=== PATIENT | female | born 1990 | race Caucasian/White ===

== ENCOUNTER 2017-03-26 01:57 | Emergency (ER) | payer BC, MEDICAID, OTHER ==
[2017-03-26] MEDS ORDERED: GI Cocktail Oral Solution 30 ML PO ONE (02:17)
--- NOTE | 2017-03-26 02:21 | EDM.PDOC ---
ED HPI GENERAL MEDICAL PROBLEM - General Chief Complaint: Abdominal Pain Stated Complaint: ABD PAIN Time Seen by Provider: 03/26/17 02:17 Source of Information: Reports: Patient History Limitations: Reports: No Limitations - History of Present Illness INITIAL COMMENTS - FREE TEXT/NARRATIVE: ate pizza for dinner developed epiG pain ~ 8pm not going away. tried TUMS with ' o' Epigastric Pain Score (Numeric/FACES): 7 - Related Data Allergies Allergy/AdvReac Type Severity Reaction Status Date / Time No Known Allergies Allergy Verified 03/26/17 02:12 Home Meds: Home Meds . [No Known Home Meds] 10/20/13 [History] Past Medical History - Past Health History Medical/Surgical History: Denies Medical/Surgical History Social & Family History - Tobacco Use Smoking Status *Q: Never Smoker Second Hand Smoke Exposure: Yes - Caffeine Use Caffeine Use: Reports: Coffee, Energy Drinks, Soda, Tea - Alcohol Use Days Per Week of Alcohol Use: 1 (Rarely) - Recreational Drug Use Recreational Drug Use: No - Living Situation & Occupation Living situation: Reports: with Significant Other Occupation: Employed ED ROS GENERAL - Review of Systems Review Of Systems: ROS reveals no pertinent complaints other than HPI. ED EXAM, GI/ABD - Physical Exam Exam: See Below Exam Limited By: No Limitations General Appearance: Alert, WD/WN, Mild Distress, Other (discomfort) Ears: Hearing Grossly Normal Throat/Mouth: Normal Voice, No Airway Compromise Head: Atraumatic Neck: Non-Tender, Full Range of Motion Respiratory/Chest: No Respiratory Distress Cardiovascular: Regular Rate, Rhythm GI/Abdominal Exam: Soft, Tender, Other (mild discomfort). No: Guarding, Rigid, Rebound Neurological: Alert, Oriented, Normal Cognition, Normal Gait, No Motor/Sensory Deficits Psychiatric: Normal Affect, Normal Mood Skin Exam: Warm, Dry, Normal Color Lymphatic: No Adenopathy Course - Vital Signs Last Recorded V/S: Last Vital Signs Temp 35.7 C 03/26/17 02:01 Pulse 65 03/26/17 02:01 Resp 16 03/26/17 02:01 BP 112/67 03/26/17 02:01 Pulse Ox 100 03/26/17 02:01 - Orders/Labs/Meds Labs: Laboratory Tests 03/26/17 03/26/17 Range/Units 02:06 02:06 WBC 9.4 (5.0-10.0) 10^3/uL RBC 4.04 L (4.2-5.4) 10^6/uL Hgb 12.6 (12.0-16.0) g/dL Hct 37.2 (37.0-47.0) % MCV 92.1 (80-100) fL MCH 31.2 (27.0-34.0) pg MCHC 33.9 (33.0-35.0) g/dL Plt Count 231 (150-450) 10^3/uL Neut % (Auto) 54.6 (42.2-75.2) % Lymph % (Auto) 32.6 (20.5-50.1) % [place] % (Auto) 8.7 H (2-8) % Eos % (Auto) 3.4 H (1.0-3.0) % Baso % (Auto) 0.7 (0.0-1.0) % Sodium 139 (135-145) mmol/L Potassium 3.8 (3.6-5.0) mmol/L Chloride 101 (101-111) mmol/L Carbon Dioxide 27.0 (21.0-31.0) mmol/L Anion Gap 14.8 BUN 12 (7-18) mg/dL Creatinine 0.7 (0.6-1.3) mg/dL Est Cr Clr Drug Dosing 115.01 mL/min Estimated GFR (MDRD) > 60 BUN/Creatinine Ratio 17.14 Glucose 102 (74-105) mg/dL Calcium 9.5 (8.4-10.2) mg/dl Total Bilirubin 0.2 (0.2-1.0) mg/dL AST 17 (10-42) IU/L ALT 14 (10-60) IU/L Alkaline Phosphatase 90 (42-121) IU/L Total Protein 6.8 (6.7-8.2) g/dl Albumin 3.9 (3.2-5.5) g/dl Globulin 2.9 Albumin/Globulin Ratio 1.34 Amylase 56 (28-100) U/L Lipase 34 (22-51) U/L Meds: Medications Discontinued Medications Generic Name Dose Route Start Last Admin Trade Name Freq PRN Reason Stop Dose Admin Al Hydroxide/Mg Hydroxide 30 ml 03/26/17 02:17 03/26/17 02:20 Gi Cocktail PO 03/26/17 02:18 30 ml ONETIME ONE Administration - Re-Assessments/Exams Free Text/Narrative Re-Assessment/Exam: 03/26/17 02:39 s/p GI cocktail = better 03/26/17 03:16 re-exam; feels good wants to go home Departure - Departure Time of Disposition: 03:18 Disposition: Home, Self-Care 01 Condition: Good Clinical Impression: Abdominal pain Qualifiers: Abdominal location: epigastric Qualified Code(s): R10.13 - Epigastric pain GERD (gastroesophageal reflux disease) Qualifiers: Esophagitis presence: with esophagitis Qualified Code(s): K21.0 - Gastro- esophageal reflux disease with esophagitis - Discharge Information Instructions: Food Choices for Gastroesophageal Reflux Disease, Adult Forms: ED Department Discharge Additional Instructions: 1) avoid oily fried spicy foods 2) see clinic for GALL BLADDER ULTRASOUND
[2017-03-26 02:53] LABS: CHLORIDE,CL 101 mmol/L (101-111); SODIUM,NA 139 mmol/L (135-145)
[2017-03-26 03:29] VITALS: BP 105/69
== END 2017-03-26 03:23 | disposition home or self-care (01) ==
LOC: DL.ED 01:57
DX: K21.0 Gastro-esophageal reflux disease with esophagitis (principal)
CPT/HCPCS: 36415; 80053; 82150; 83690; 85025; 99284; A9270

== ENCOUNTER 2020-02-26 06:58 | Inpatient (IN) | payer BC ==
--- NOTE | 2020-02-26 01:06 | PCM.LDHP ---
L&D History of Present Illness - General Date of Service: 02/26/20 Admit Problem/Dx: Admission Diagnosis/Problem Admission Diagnosis/Problem Source of Information: Patient History Limitations: Reports: No Limitations - History of Present Illness Introduction:: 29-year-old at 40w5d was scheduled for IOL today secondary to postdates. Patient awoke around 0630 and noted she had some pinkish-red vaginal bleeding. This seemed to be continuously trickling. Patient called L&D and was advised to come in. Upon arrival, patient did have a saturated panty liner with pinkish fluid. Baby has been active. Patient was feeling contractions every 3-5 minutes, but these seemed to decrease upon arrival to L&D. No new headaches or dizziness. - Related Data Allergies/Adverse Reactions: Allergies Allergy/AdvReac Type Severity Reaction Status Date / Time No Known Allergies Allergy Verified 12/22/19 11:46 Home Medications: Home Meds Ferrous Sulfate [Iron] 1 tab PO DAILY 12/22/19 [History] #103/Iron Fumarate/Fa [ ] 1 tab PO DAILY 12/22/19 [History] Famotidine [Pepcid] 1 tab PO PRN 02/26/20 [History] Past Medical History - Past Health History Medical/Surgical History: Denies Medical/Surgical History Social & Family History - Family History Family Medical History: Noncontributory - Caffeine Use Caffeine Use: Reports: Coffee, Energy Drinks, Soda, Tea - Living Situation & Occupation Living situation: Reports: with Significant Other Occupation: Employed H&P Review of Systems - Review of Systems: Review Of Systems: See Below General: Reports: No Symptoms HEENT: Reports: No Symptoms Pulmonary: Reports: No Symptoms Cardiovascular: Reports: No Symptoms Gastrointestinal: Reports: No Symptoms Musculoskeletal: Reports: No Symptoms Skin: Reports: No Symptoms L&D Exam - Exam Exam: See Below - OB Specific Fundal Height In cm: 38 Contraction Duration (sec): 60 Contraction Frequency (min): 5 Contraction Intensity: Mild to Moderate Movement: Active Heart Tones: Present Heart Tones per Min: 140 Heart Rate (FHR) Variability: Moderate (6-25 bmp) Presentation: Vertex - Balbuena Score Balbuena Score Cervix Position: Posterior Balbuena Score Consistency: Soft Balbuena Score Effacement: >80% Balbuena Score Dilation: 3-4 cm Balbuena Score 's Station: -2 Balbuena Score Total: 8 - Exam General: Alert, Oriented HEENT: Mucosa Moist & [place] Lungs: Clear to Auscultation, Normal Respiratory Effort Cardiovascular: Regular Rate, Regular Rhythm. No: Systolic Murmur, Diastolic Mu rmur Genitourinary: Normal external exam Back Exam: Normal Inspection Extremities: Normal Inspection, No Pedal Edema Skin: Warm, Dry, Intact - Patient Data Result Diagrams: 02/26/20 07:36 - Problem List (1) SROM (spontaneous rupture of membranes) SNOMED Code(s): 586105178 ICD Code: MQV6255 - Status: Acute Current Visit: Yes (2) Post-dates SNOMED Code(s): 06332029 ICD Code: O48.0 - POST-TERM Status: Acute Current Visit: Yes (3) Impaired glucose in , antepartum SNOMED Code(s): 284889854, 844199089 ICD Code: O99.810 - ABNORMAL GLUCOSE COMPLICATING Status: Acute Current Visit: Yes (4) Rh negative status during SNOMED Code(s): 497149973 ICD Code: O26.899 - OTH RELATED CONDITIONS, UNSPECIFIED TRIMESTER; Z67.91 - UNSPECIFIED BLOOD TYPE, RH NEGATIVE Status: Acute Current Visit: Yes (5) Not immune to rubella SNOMED Code(s): 972296273 ICD Code: Z78.9 - OTHER SPECIFIED HEALTH STATUS Status: Acute Current Visit: Yes Problem List Initiated/Reviewed/Updated: Yes Assessment/Plan Comment:: 29-year-old at 40w5d with suspected SROM --Blood-tinged fluid consistent with SROM, Amnisure positive but possible fal se positive due to blood 1. Admit to L&D and initiate routine intrapartum orders 2. Due to likely SROM, will use pitocin for labor induction/augmentation per protocol 3. Patient does desire intrathecal when necessary 4. Expectant management. Anticipate Renetta Ash MD
[~2020-02-26 06:58] MED LIST: Butorphanol 2 MG/ML SDV IVPUSH PRN; Carboprost Tromethamine 250 MCG/1 ML Amp IM PRN; Lactated Ringers 1,000 ML IV ONE; Lidocaine 1% 30 ML SDV INJECT PRN; Methylergonovine 0.2 MG/1 ML Amp IM PRN; Misoprostol 25 MCG (1/4 of 100 MCG) Tab VAG PRN; Misoprostol 400 MCG (4 X 100 MCG TAB) RECTAL PRN; Ondansetron 4 MG/2 ML SDV IVPUSH PRN; Oxytocin/Normal Saline 30 UNIT/500 ML BAG IV SCH; Sodium Chloride 0.9% 10 ML Syringe FLUSH PRN; Tranexamic Acid 1,000 MG in Sodium Chloride 0.9% 100 ML IV PRN; fentaNYL 100 MCG/2 ML SDV IVPUSH PRN
[2020-02-26] MEDS: Lactated Ringers 1,000 ML IV SCH ×5 (10:05→21:05)
[2020-02-26] MEDS ORDERED: fentaNYL 100 MCG/2 ML SDV ONE ×2 (15:55→21:05)
[2020-02-26] MEDS ORDERED: Sodium Bicarbonate 4.2% 2.5 MEQ/5 ML SDV ONE ×2 (15:55→21:06)
[2020-02-26] MEDS ORDERED: EPINEPHrine 1 MG/1 ML Amp ONE ×2 (15:55→21:05)
--- NOTE | 2020-02-26 16:18 | PCM.SN.2 ---
- Free Text/Narrative Note: Intrathecal, sitting position, sterile prep and drape, 1% lidocaine w bicarb for skinwheal to L2 L3 interspace x 2, introducer, 24 ga pencan x 2. Pos CSF ,neg heme, neg parasthesia. 0.1 ml pf 1:1000 epi. 20 mcg pf sufenta, 30 mcg pf fentanyl, 0.4 ml pf NS and 6 mg of 0.75% pf bupivacaine injected after CSF aspiration. Pt to L lateral position. Procedure time 1600 to 1630
[2020-02-26] MEDS ORDERED: ePHEDrine 50 MG/ML SDV ONE (16:21)
[2020-02-26] MEDS ORDERED: ePHEDrine 50 MG/ML SDV IVPUSH PRN (16:25)
[2020-02-26] MEDS ORDERED: fentaNYL 100 MCG/2 ML SDV IVPUSH STA (19:57)
--- NOTE | 2020-02-26 21:27 | PCM.SN.2 ---
- Free Text/Narrative Note: Intrathecal, sitting position, sterile prep and drape, 1% lidocaine w bicarb for skinwheal to L2 L3 interspace x 1, introducer, 24 ga pencan x 1. Pos CSF ,neg heme, neg parasthesia. 20 mcg pf sufenta, 30 mcg pf fentanyl, 0.4 ml pf NS and 6 mg of 0.75% pf bupivacaine injected after CSF aspiration. Pt to L lateral pos ition. Procedure time 2104 to 2134
[2020-02-27] MEDS ORDERED: Measles, Mumps & Rubella Vaccine 0.5 ML SDV SUBCUT ONE (00:15)
[2020-02-27] MEDS ORDERED: Simethicone 80 MG Tab.Chew PO PRN (00:15)
[2020-02-27] MEDS ORDERED: Benzocaine/Menthol 20%-0.5% Spray 56 GM Canister TOP PRN (00:15)
[2020-02-27] MEDS ORDERED: Oxytocin 10 Units/1 ML SDV IM PRN (00:15)
--- NOTE | 2020-02-27 00:18 | PCM.DEL ---
L & D Note - General Info Date of Service: 02/26/20 Mother's Due Date: 02/29/20 - Delivery Note Labor: Spontaneous, Augmented by Oxytocin Delivery Outcome: Livebirth Infant Delivery Method: Spontaneous Vaginal Delivery-Single Presentation: Vertex Nuchal Cord: None Anesthesia Type: Intrathecal Amniotic Fluid Description: Clear Episiotomy Type: None Laceration: 2nd Degree, Labial (Right), Perineal Placenta: Intact, Spontaneous Cord: 3 Vessels Estimated Blood Loss: 350 Resuscitation Needed: No [place]: Bulb Syringe, Stimulated, Warmed, [place] Used Provider: Renetta Ash Score 1 min: 9 Score 5 min: 9 Delivery Comments (Free Text/Narrative):: Patient presented to L&D around 0700 with concerns for vaginal bleeding. She had been scheduled for IOL for postdates later today. It was determined that patient had blood-tinged SROM and was noted to be jennifer every 5 minutes. Pitocin was started to augment labor. Patient progressed steadily throughout the first stage of labor. She received intrathecal x2 for pain control. A small forebag was ruptured for a small amount of clear fluid around 1700. Patient was noted to be complete around 2230. She pushed for approximately 1 hour with good progress and delivered a viable female with Apgars of 9 and 9 at 1 and 5 minutes respectively. Infant was placed on the patient's chest. The umbilical cord was clamped x 2 and cut. Cord blood was collected. The placenta delivered 5 minutes later without difficulty and was noted to be intact. A small left labial laceration was noted to have a small amount of persistent bleeding so was closed with 4-0 Vicryl suture in a running fashion. A second degree perineal laceration was closed with 3-0 Vicryl in the standard manner. Assessment after repair showed the uterus to be firm with minimal bleeding. Sponge and instrument counts were noted to be correct. Patient tolerated the procedure well without any immediate complications. Induction Criteria - Augmentation Estimated Pelvis: Reports: Adequate Weight Estimated:: Reports: AGA Reassuring Monitoring Strip: Yes Absence of Tachy Systole: Yes - General Info Date of Service: 02/26/20 - Patient Data Vitals - Most Recent: Last Vital Signs Temp 36.8 C 02/26/20 18:45 Pulse 58 L 02/26/20 21:55 Resp 18 02/26/20 21:55 BP 99/50 L 02/26/20 21:55 Pulse Ox 100 02/26/20 21:55 Weight - Most Recent: 78.471 kg I&O - Last 24 Hours: Intake & Output 02/26/20 02/26/20 02/27/20 14:59 22:59 06:59 Intake Total 2000 Output Total 400 Balance 1600 Lab Results Last 24 Hours: Laboratory Results - last 24 hr 02/26/20 02/26/20 02/26/20 Range/Units 07:00 07:36 09:00 WBC 9.6 (5.0-10.0) 10^3/uL RBC 3.54 L (4.2-5.4) 10^6/uL Hgb 11.6 L (12.0-16.0) g/dL Hct 33.3 L (37.0-47.0) % MCV 94.1 (80-100) fL MCH 32.8 (27.0-34.0) pg MCHC 34.8 (33.0-35.0) g/dL Plt Count 192 (150-450) 10^3/uL Membrane Rupture Positive (NEG) COVID-19 (PARKER) Negative (NEGATIVE) Med Orders - Current: Current Medications Acetaminophen (Tylenol) 650 mg PO Q4H PRN PRN Reason: Pain (Mild 1-3) and fever Carboprost Tromethamine (Hemabate Ds) 250 mcg IM ASDIRECTED PRN PRN Reason: HEMORRHAGE Ephedrine Sulfate (Ephedrine Sulfate) 10 mg IVPUSH ONETIME PRN PRN Reason: Hypotension Last Admin: 02/26/20 16:37 Dose: 10 mg Documented by: Tranexamic Acid 1,000 mg/ (Sodium Chloride) 110 mls @ 660 mls/hr IV ONETIME PRN PRN Reason: Bleeding Oxytocin/Sodium Chloride (Pitocin In Ns 30 Unit/500 Ml) 30 unit in 500 mls @ 2 mls/hr IV TITRATE CARLOS; Protocol Last Titration: 02/26/20 23:55 Dose: 125 munits/min, 125 mls/hr Documented by: Methylergonovine Maleate (Methergine) 0.2 mg IM ASDIRECTED PRN PRN Reason: Hemorrhage Misoprostol (Cytotec) 800 mcg RECTAL ASDIRECTED PRN PRN Reason: Hemorrhage Ondansetron HCl (Zofran) 4 mg IVPUSH Q4H PRN PRN Reason: Nausea/Vomiting Last Admin: 02/26/20 15:55 Dose: 4 mg Documented by: Sodium Chloride (Saline Flush) 10 ml FLUSH ASDIRECTED PRN PRN Reason: Keep Vein Open Discontinued Medications Butorphanol Tartrate (Stadol) 0.5 mg IVPUSH Q3H PRN PRN Reason: Pain Butorphanol Tartrate (Stadol) 1 mg IVPUSH Q3H PRN PRN Reason: Pain Ephedrine Sulfate (Ephedrine Sulfate) Confirm Administered Dose 50 mg .ROUTE .STK-MED ONE Stop: 02/26/20 16:22 Last Admin: 02/26/20 19:35 Dose: Not Given Documented by: Epinephrine HCl (Adrenalin) Confirm Administered Dose 1 mg .ROUTE .STK-MED ONE Stop: 02/26/20 15:56 Last Admin: 02/26/20 19:12 Dose: Not Given Documented by: Epinephrine HCl (Adrenalin) Confirm Administered Dose 1 mg .ROUTE .STK-MED ONE Stop: 02/26/20 21:06 Last Admin: 02/26/20 22:07 Dose: Not Given Documented by: Fentanyl (Sublimaze) 100 mcg IVPUSH Q1H PRN PRN Reason: Pain (moderate 4-6) Fentanyl (Sublimaze) Confirm Administered Dose 100 mcg .ROUTE .STK-MED ONE Stop: 02/26/20 15:56 Last Admin: 02/26/20 19:12 Dose: Not Given Documented by: Fentanyl (Sublimaze) 50 mcg IVPUSH ONETIME STA Stop: 02/26/20 19:58 Last Admin: 02/26/20 19:59 Dose: 50 mcg Documented by: Fentanyl (Sublimaze) Confirm Administered Dose 100 mcg .ROUTE .STK-MED ONE Stop: 02/26/20 21:06 Last Admin: 02/26/20 22:07 Dose: Not Given Documented by: Lactated Ringer's (Ringers, Lactated) 1,000 mls @ 999 mls/hr IV BOLUS ONE Stop: 02/26/20 02:15 Last Admin: 02/26/20 20:03 Dose: Not Given Documented by: Lactated Ringer's (Ringers, Lactated) 1,000 mls @ 125 mls/hr IV ASDIRECTED CARLOS Last Admin: 02/26/20 21:05 Dose: 125 mls/hr Documented by: Lidocaine HCl (Xylocaine-Mpf 1%) 30 ml INJECT ASDIRECTED PRN PRN Reason: Perineal Repair Misoprostol (Cytotec) 25 mcg VAG Q4H PRN PRN Reason: cervical ripening Sodium Bicarbonate (Sodium Bicarbonate 4.2%) Confirm Administered Dose 2.5 meq .ROUTE .STK-MED ONE Stop: 02/26/20 15:56 Last Admin: 02/26/20 19:12 Dose: Not Given Documented by: Sodium Bicarbonate (Sodium Bicarbonate 4.2%) Confirm Administered Dose 2.5 meq .ROUTE .STK-MED ONE Stop: 02/26/20 21:07 Last Admin: 02/26/20 22:07 Dose: Not Given Documented by: Sufentanil Citrate (Sufenta) Confirm Administered Dose 50 mcg .ROUTE .STK-MED ONE Stop: 02/26/20 15:56 Last Admin: 02/26/20 19:34 Dose: Not Given Documented by: Sufentanil Citrate (Sufenta) Confirm Administered Dose 50 mcg .ROUTE .STK-MED ONE Stop: 02/26/20 21:06 Last Admin: 02/26/20 22:07 Dose: Not Given Documented by: - Problem List & Annotations (1) SROM (spontaneous rupture of membranes) SNOMED Code(s): 747667435 Code(s): PKY8727 - Status: Acute Current Visit: Yes (2) Post-dates SNOMED Code(s): 11673330 Code(s): O48.0 - POST-TERM Status: Acute Current Visit: Yes (3) Impaired glucose in , antepartum SNOMED Code(s): 612399847, 562128011 Code(s): O99.810 - ABNORMAL GLUCOSE COMPLICATING Status: Acute Current Visit: Yes (4) Rh negative status during SNOMED Code(s): 998149983 Code(s): O26.899 - OTH RELATED CONDITIONS, UNSPECIFIED TRIMESTER; Z67.91 - UNSPECIFIED BLOOD TYPE, RH NEGATIVE Status: Acute Current Visit: Yes (5) Not immune to rubella SNOMED Code(s): 176712958 Code(s): Z78.9 - OTHER SPECIFIED HEALTH STATUS Status: Acute Current Visit: Yes (6) (normal spontaneous vaginal delivery) SNOMED Code(s): 70097925, 771430763 Code(s): O80 - ENCOUNTER FOR FULL-TERM UNCOMPLICATED DELIVERY Status: Acute Current Visit: Yes (7) Obstetric labial laceration, delivered, current hospitalization SNOMED Code(s): 805969688, 680925323, 357359323 Code(s): O70.0 - FIRST DEGREE PERINEAL LACERATION DURING DELIVERY Status: Acute Current Visit: Yes Annotation/Comment:: Left (8) Perineal laceration SNOMED Code(s): 208866894 Code(s): DCB6887 - Status: Acute Current Visit: Yes - Problem List Review Problem List Initiated/Reviewed/Updated: No - My Orders Last 24 Hours: My Active Orders 02/26/20 01:15 Patient Status [ADT] Routine Notify Provider Vital Signs OB [RC] ASDIRECTED Up ad Lakesha [RC] ASDIRECTED Acetaminophen [TylenoL] 650 mg PO Q4H PRN Carboprost Tromethamine [Hemabate DS] 250 mcg IM ASDIRECTED PRN Methylergonovine [Methergine] 0.2 mg IM ASDIRECTED PRN Ondansetron [Zofran] 4 mg IVPUSH Q4H PRN Oxytocin/Normal Saline [Pitocin in NS 30 UNIT/500 ML] 30 unit in 500 ml IV TITRATE Sodium Chloride 0.9% [Saline Flush] 10 ml FLUSH ASDIRECTED PRN Tranexamic Acid [Cyklokapron] 1,000 mg Sodium Chloride 0.9% [Normal Saline] 100 ml IV ONETIME miSOPROStoL [Cytotec] 800 mcg RECTAL ASDIRECTED PRN Saline Lock Insert [OM.PC] Routine Resuscitation Status Routine 02/26/20 Breakfast Regular Diet [DIET] 02/26/20 09:45 Communication Order [RC] ROUTINE 02/26/20 21:53 Urinary Catheter Assessment [RC] ASDIRECTED 02/26/20 22:00 Insert Urinary Catheter [OM.PC] Q24H 02/27/20 00:15 Vital Signs [RC] PFP Benzocaine/Menthol [Dermoplast Pain Relief [place]] See Dose Instructions TOP Q4H PRN Ibuprofen [Motrin] 800 mg PO Q8H PRN Measles, Mumps & Rubella [M-M-R II Vaccine] 0.5 ml SUBCUT .ONCE ONE Oxytocin [Pitocin] 10 unit IM ONETIME PRN Simethicone 80 mg PO Q4H PRN witch Alex [Medi-Pads] 1 each TOP Q4HR PRN 02/27/20 00:16 Assess Lochia [WOMSER] Per Unit Routine Assess Uterine Involution [WOMSER] Per Unit Routine Breast Pump [WOMSER] Per Unit Routine Ice Therapy [OM.PC] Per Unit Routine Perineal Care [OM.PC] Per Unit Routine Sitz Bath [OM.PC] Per Unit Routine 02/27/20 00:17 Vaccines to be Administered [RC] PER UNIT ROUTINE 02/27/20 Breakfast Regular Diet [DIET] 02/27/20 09:00 Docusate Sodium [Colace] 100 mg PO BID Vit with Ca/FA/Iron [ Plus Iron] 1 each PO DAILY - Assessment Assessment:: 29-year-old now s/p at 40w5d - Plan Plan:: 1. Initiate routine orders 2. Plans to breastfeed 3. Anticipate discharge 02/28/2020 Renetta Ash MD
[2020-02-27] MEDS: Ibuprofen 800 MG Tab PO PRN ×2 (03:41→16:52)
[2020-02-27] MEDS: Acetaminophen 325 MG Tab PO PRN ×3 (08:51→20:56)
[2020-02-27] MEDS: Prenatal Multivitamin with Calcium/Folic Acid/Iron Tab PO SCH (08:52)
[2020-02-27] MEDS: Docusate Sodium 100 MG Cap PO SCH ×2 (08:52→20:56)
--- NOTE | 2020-02-27 23:07 | PCM.PNPP ---
- General Info Date of Service: 02/27/20 Subjective Update: Patient is doing well. She has been out of bed. No dizziness or lightheadedness with ambulation. Has urinated since delivery but no bowel movement. Tolerating a general diet. No fever or chills. has been going well. No concerns per patient or per nursing staff. Functional Status: Reports: Pain Controlled, Tolerating Diet, Ambulating, Urinating. Denies: New Symptoms - Review of Systems General: Reports: No Symptoms HEENT: Reports: No Symptoms Pulmonary: Reports: No Symptoms Cardiovascular: Reports: No Symptoms Gastrointestinal: Reports: No Symptoms Musculoskeletal: Reports: Back Pain Skin: Reports: No Symptoms - General Info Date of Service: 02/27/20 - Patient Data Vital Signs - Most Recent: Last Vital Signs Temp 36.6 C 02/27/20 20:00 Pulse 75 02/27/20 20:00 Resp 16 02/27/20 20:00 BP 115/74 02/27/20 20:00 Pulse Ox 98 02/27/20 20:00 Weight - Most Recent: 78.471 kg I&O - Last 24 Hours: Intake & Output 02/27/20 02/27/20 02/28/20 14:59 22:59 06:59 Output Total 900 Balance -900 Med Orders - Current: Current Medications Acetaminophen (Tylenol) 650 mg PO Q4H PRN PRN Reason: Pain (Mild 1-3) and fever Last Admin: 02/27/20 20:56 Dose: 650 mg Documented by: Benzocaine/Menthol (Dermoplast Pain Relief [place]) 0 gm TOP Q4H PRN PRN Reason: Perineal comfort measures Last Admin: 02/27/20 03:41 Dose: 1 spray Documented by: Carboprost Tromethamine (Hemabate Ds) 250 mcg IM ASDIRECTED PRN PRN Reason: HEMORRHAGE Docusate Sodium (Colace) 100 mg PO BID CARLOS Last Admin: 02/27/20 20:56 Dose: 100 mg Documented by: Ephedrine Sulfate (Ephedrine Sulfate) 10 mg IVPUSH ONETIME PRN PRN Reason: Hypotension Last Admin: 02/26/20 16:37 Dose: 10 mg Documented by: Tranexamic Acid 1,000 mg/ (Sodium Chloride) 110 mls @ 660 mls/hr IV ONETIME PRN PRN Reason: Bleeding Oxytocin/Sodium Chloride (Pitocin In Ns 30 Unit/500 Ml) 30 unit in 500 mls @ 2 mls/hr IV TITRATE CARLOS; Protocol Last Titration: 02/27/20 01:45 Dose: 0 munits/min, 0 mls/hr Documented by: Ibuprofen (Motrin) 800 mg PO Q8H PRN PRN Reason: Mild Pain or Fever Last Admin: 02/27/20 16:52 Dose: 800 mg Documented by: Methylergonovine Maleate (Methergine) 0.2 mg IM ASDIRECTED PRN PRN Reason: Hemorrhage Misoprostol (Cytotec) 800 mcg RECTAL ASDIRECTED PRN PRN Reason: Hemorrhage Ondansetron HCl (Zofran) 4 mg IVPUSH Q4H PRN PRN Reason: Nausea/Vomiting Last Admin: 02/26/20 15:55 Dose: 4 mg Documented by: Oxytocin (Pitocin) 10 unit IM ONETIME PRN PRN Reason: Bleeding Prenat Multivit/Cherry/Iron/Folic Ac ( Plus Iron) 1 each PO DAILY CARLOS Last Admin: 02/27/20 08:52 Dose: 1 each Documented by: Simethicone (Simethicone) 80 mg PO Q4H PRN PRN Reason: Gas Sodium Chloride (Saline Flush) 10 ml FLUSH ASDIRECTED PRN PRN Reason: Keep Vein Open Witch Alex (Medi-Pads) 1 each TOP Q4HR PRN PRN Reason: Perineal Comfort Measure Discontinued Medications Butorphanol Tartrate (Stadol) 0.5 mg IVPUSH Q3H PRN PRN Reason: Pain Butorphanol Tartrate (Stadol) 1 mg IVPUSH Q3H PRN PRN Reason: Pain Ephedrine Sulfate (Ephedrine Sulfate) Confirm Administered Dose 50 mg .ROUTE .STK-MED ONE Stop: 02/26/20 16:22 Last Admin: 02/26/20 19:35 Dose: Not Given Documented by: Epinephrine HCl (Adrenalin) Confirm Administered Dose 1 mg .ROUTE .STK-MED ONE Stop: 02/26/20 15:56 Last Admin: 02/26/20 19:12 Dose: Not Given Documented by: Epinephrine HCl (Adrenalin) Confirm Administered Dose 1 mg .ROUTE .STK-MED ONE Stop: 02/26/20 21:06 Last Admin: 02/26/20 22:07 Dose: Not Given Documented by: Fentanyl (Sublimaze) 100 mcg IVPUSH Q1H PRN PRN Reason: Pain (moderate 4-6) Fentanyl (Sublimaze) Confirm Administered Dose 100 mcg .ROUTE .STK-MED ONE Stop: 02/26/20 15:56 Last Admin: 02/26/20 19:12 Dose: Not Given Documented by: Fentanyl (Sublimaze) 50 mcg IVPUSH ONETIME STA Stop: 02/26/20 19:58 Last Admin: 02/26/20 19:59 Dose: 50 mcg Documented by: Fentanyl (Sublimaze) Confirm Administered Dose 100 mcg .ROUTE .STK-MED ONE Stop: 02/26/20 21:06 Last Admin: 02/26/20 22:07 Dose: Not Given Documented by: Lactated Ringer's (Ringers, Lactated) 1,000 mls @ 999 mls/hr IV BOLUS ONE Stop: 02/26/20 02:15 Last Admin: 02/26/20 20:03 Dose: Not Given Documented by: Lactated Ringer's (Ringers, Lactated) 1,000 mls @ 125 mls/hr IV ASDIRECTED CARLOS Last Admin: 02/26/20 21:05 Dose: 125 mls/hr Documented by: Lidocaine HCl (Xylocaine-Mpf 1%) 30 ml INJECT ASDIRECTED PRN PRN Reason: Perineal Repair Measles/Mumps/Rubella Vaccine Live (M-M-R Ii Vaccine) 0.5 ml SUBCUT .ONCE ONE Stop: 02/27/20 00:16 Last Admin: 02/27/20 16:50 Dose: 0.5 ml Documented by: Misoprostol (Cytotec) 25 mcg VAG Q4H PRN PRN Reason: cervical ripening Sodium Bicarbonate (Sodium Bicarbonate 4.2%) Confirm Administered Dose 2.5 meq .ROUTE .STK-MED ONE Stop: 02/26/20 15:56 Last Admin: 02/26/20 19:12 Dose: Not Given Documented by: Sodium Bicarbonate (Sodium Bicarbonate 4.2%) Confirm Administered Dose 2.5 meq .ROUTE .STK-MED ONE Stop: 02/26/20 21:07 Last Admin: 02/26/20 22:07 Dose: Not Given Documented by: Sufentanil Citrate (Sufenta) Confirm Administered Dose 50 mcg .ROUTE .STK-MED ONE Stop: 02/26/20 15:56 Last Admin: 02/26/20 19:34 Dose: Not Given Documented by: Sufentanil Citrate (Sufenta) Confirm Administered Dose 50 mcg .ROUTE .STK-MED ONE Stop: 02/26/20 21:06 Last Admin: 02/26/20 22:07 Dose: Not Given Documented by: - Interaction Disposition, : to Nursery Infant Feeding: Breastfed Infant; Nursed Well Support Person: Significant Other - Recovery Exam Fundal Tone: Firm Fundal Level: At Umbilicus Fundal Placement: Midline Lochia Amount: Small Lochia Color: Rubra/Red Perineum Description: Intact, Minimal Bruising/Swelling Episiotomy/Laceration: Approximated Bladder Status: Voiding Urinary Elimination: Voided - Exam General: Alert, Oriented Lungs: Clear to Auscultation, Normal Respiratory Effort Cardiovascular: Regular Rate, Regular Rhythm, No Murmurs GI/Abdominal Exam: Soft Extremities: No Pedal Edema Skin: Warm, Dry, Intact - Problem List & Annotations (1) SROM (spontaneous rupture of membranes) SNOMED Code(s): 486865840 Code(s): LAB1403 - Status: Acute Current Visit: Yes (2) Post-dates SNOMED Code(s): 65704370 Code(s): O48.0 - POST-TERM Status: Acute Current Visit: Yes (3) Impaired glucose in , antepartum SNOMED Code(s): 914445760, 303071178 Code(s): O99.810 - ABNORMAL GLUCOSE COMPLICATING Status: Acute Current Visit: Yes (4) Rh negative status during SNOMED Code(s): 718990292 Code(s): O26.899 - OTH RELATED CONDITIONS, UNSPECIFIED TRIMESTER; Z67.91 - UNSPECIFIED BLOOD TYPE, RH NEGATIVE Status: Acute Current Visit: Yes (5) Not immune to rubella SNOMED Code(s): 528571048 Code(s): Z78.9 - OTHER SPECIFIED HEALTH STATUS Status: Acute Current Visit: Yes (6) (normal spontaneous vaginal delivery) SNOMED Code(s): 15388839, 064875080 Code(s): O80 - ENCOUNTER FOR FULL-TERM UNCOMPLICATED DELIVERY Status: Acute Current Visit: Yes (7) Obstetric labial laceration, delivered, current hospitalization SNOMED Code(s): 233742948, 055996648, 432811661 Code(s): O70.0 - FIRST DEGREE PERINEAL LACERATION DURING DELIVERY Status: Acute Current Visit: Yes Annotation/Comment:: Left (8) Perineal laceration SNOMED Code(s): 059866089 Code(s): GOH6306 - Status: Acute Current Visit: Yes - Problem List Review Problem List Initiated/Reviewed/Updated: Yes - My Orders Last 24 Hours: My Active Orders 02/27/20 00:15 Vital Signs [RC] Benzocaine/Menthol [Dermoplast Pain Relief [place]] See Dose Instructions TOP Q4H PRN Ibuprofen [Motrin] 800 mg PO Q8H PRN Oxytocin [Pitocin] 10 unit IM ONETIME PRN Simethicone 80 mg PO Q4H PRN witch Alex [Medi-Pads] 1 each TOP Q4HR PRN 02/27/20 00:16 Assess Lochia [WOMSER] Per Unit Routine Assess Uterine Involution [WOMSER] Per Unit Routine Breast Pump [WOMSER] Per Unit Routine Ice Therapy [OM.PC] Per Unit Routine Perineal Care [OM.PC] Per Unit Routine Sitz Bath [OM.PC] Per Unit Routine 02/27/20 Breakfast Regular Diet [DIET] 02/27/20 09:00 Docusate Sodium [Colace] 100 mg PO BID Vit with Ca/FA/Iron [ Plus Iron] 1 each PO DAILY - Assessment Assessment:: 29-year-old PPD#1 s/p at 40w5d - Plan Plan:: 1. Continue routine orders 2. Plans to breastfeed 3. Anticipate discharge 02/28/2020 Renetta Ash MD
[2020-02-28] MEDS: Ibuprofen 800 MG Tab PO PRN (01:36)
[2020-02-28] MEDS: Acetaminophen 325 MG Tab PO PRN (01:37)
--- NOTE | 2020-02-28 09:10 | PCM.DCSUM1 ---
Discharge Summary - Hospital Course Free Text/Narrative:: 29-year old s/p at 40w5d Diagnosis: Stroke: No - Discharge Data Discharge Date: 02/28/20 Discharge Disposition: Home, Self-Care 01 Condition: Good - Referral to Home Health Primary Care Physician: Abdulaziz Ash MD - Discharge Diagnosis/Problem(s) (1) SROM (spontaneous rupture of membranes) SNOMED Code(s): 512409370 ICD Code: QCV5103 - Status: Acute Current Visit: Yes (2) Post-dates SNOMED Code(s): 80469275 ICD Code: O48.0 - POST-TERM Status: Acute Current Visit: Yes (3) Impaired glucose in , antepartum SNOMED Code(s): 074613850, 013983738 ICD Code: O99.810 - ABNORMAL GLUCOSE COMPLICATING Status: Acute Current Visit: Yes (4) Rh negative status during SNOMED Code(s): 539624146 ICD Code: O26.899 - OTH RELATED CONDITIONS, UNSPECIFIED TRIMESTER; Z67.91 - UNSPECIFIED BLOOD TYPE, RH NEGATIVE Status: Acute Current Visit: Yes (5) Not immune to rubella SNOMED Code(s): 534361877 ICD Code: Z78.9 - OTHER SPECIFIED HEALTH STATUS Status: Acute Current Visit: Yes (6) (normal spontaneous vaginal delivery) SNOMED Code(s): 33577902, 516507631 ICD Code: O80 - ENCOUNTER FOR FULL-TERM UNCOMPLICATED DELIVERY Status: Acute Current Visit: Yes (7) Obstetric labial laceration, delivered, current hospitalization SNOMED Code(s): 105655562, 888402550, 318583218 ICD Code: O70.0 - FIRST DEGREE PERINEAL LACERATION DURING DELIVERY Status: Acute Current Visit: Yes Problem Details: Left (8) Perineal laceration SNOMED Code(s): 275994783 ICD Code: VTR0086 - Status: Acute Current Visit: Yes - Patient Summary/Data Operative Procedure(s) Performed: None Complications: None Consults: None Labs Pending at D/C: None Recommended Follow-up Testing/Procedures: None Hospital Course: Please see subjective Section - Patient Instructions Diet: Usual Diet as Tolerated Activity: As Tolerated, No Lifting Over 20 Pounds Driving: May Drive Today Showering/Bathing: May Shower Notify Provider of: Fever, Increased Pain, Nausea and/or Vomiting - Discharge Plan *PRESCRIPTION DRUG MONITORING PROGRAM REVIEWED*: Not Applicable *COPY OF PRESCRIPTION DRUG MONITORING REPORT IN PATIENT RIGO: Not Applicable Home Medications: Home Meds Ferrous Sulfate [Iron] 1 tab PO DAILY 12/22/19 [History] #103/Iron Fumarate/Fa [ ] 1 tab PO DAILY 12/22/19 [History] Famotidine [Pepcid] 1 tab PO PRN 02/26/20 [History] Acetaminophen [Tylenol] 650 mg PO Q4H PRN tablet 02/28/20 [Rx] Docusate Sodium [Colace] 100 mg PO BID cap 02/28/20 [Rx] Ibuprofen [Motrin] 800 mg PO Q8H PRN tablet 02/28/20 [Rx] witch Radha [Medi-Pads] 1 each TOP Q4HR PRN pad 02/28/20 [Rx] - Discharge Summary/Plan Comment DC Time >30 min.: No Discharge Summary/Plan Comment: Discharge home today. Follow-up in 6-[address] Avina for routine care. Routine discharge information will be provided by nursing staff. Patient and her fiance strongly encouraged to call over the weekend if they have any issues. - General Info Date of Service: 02/28/20 Admission Dx/Problem (Free Text: Admission Diagnosis/Problem Admission Diagnosis/Problem Subjective Update: Patient is doing well. She has been out of bed. No dizziness or lightheadedness with ambulation. Urinating without difficulty. Tolerating a general diet. No fever or chills. Baby has been latching and feeding well. Patient is concerned that she wants to nurse all the time. Very teary and concerned she is doing something wrong--reassured that this is very normal. No concerns per patient or per nursing staff. Functional Status: Reports: Pain Controlled, Tolerating Diet, Ambulating, Urinating. Denies: New Symptoms - Review of Systems General: Reports: No Symptoms HEENT: Reports: No Symptoms Pulmonary: Reports: No Symptoms Cardiovascular: Reports: No Symptoms Gastrointestinal: Reports: No Symptoms Genitourinary: Reports: No Symptoms Musculoskeletal: Reports: No Symptoms Skin: Reports: No Symptoms Neurological: Reports: No Symptoms - Patient Data Vitals - Most Recent: Last Vital Signs Temp 36.6 C 02/27/20 20:00 Pulse 75 02/27/20 20:00 Resp 16 02/27/20 20:00 BP 115/74 02/27/20 20:00 Pulse Ox 98 02/27/20 20:00 Weight - Most Recent: 78.471 kg Med Orders - Current: Current Medications Acetaminophen (Tylenol) 650 mg PO Q4H PRN PRN Reason: Pain (Mild 1-3) and fever Last Admin: 02/28/20 01:37 Dose: 650 mg Documented by: Benzocaine/Menthol (Dermoplast Pain Relief [place]) 0 gm TOP Q4H PRN PRN Reason: Perineal comfort measures Last Admin: 02/27/20 03:41 Dose: 1 spray Documented by: Carboprost Tromethamine (Hemabate Ds) 250 mcg IM ASDIRECTED PRN PRN Reason: HEMORRHAGE Docusate Sodium (Colace) 100 mg PO BID CARLOS Last Admin: 02/27/20 20:56 Dose: 100 mg Documented by: Ephedrine Sulfate (Ephedrine Sulfate) 10 mg IVPUSH ONETIME PRN PRN Reason: Hypotension Last Admin: 02/26/20 16:37 Dose: 10 mg Documented by: Tranexamic Acid 1,000 mg/ (Sodium Chloride) 110 mls @ 660 mls/hr IV ONETIME PRN PRN Reason: Bleeding Oxytocin/Sodium Chloride (Pitocin In Ns 30 Unit/500 Ml) 30 unit in 500 mls @ 2 mls/hr IV TITRATE [facility]; Protocol Last Titration: 02/27/20 01:45 Dose: 0 munits/min, 0 mls/hr Documented by: Ibuprofen (Motrin) 800 mg PO Q8H PRN PRN Reason: Mild Pain or Fever Last Admin: 02/28/20 01:36 Dose: 800 mg Documented by: Methylergonovine Maleate (Methergine) 0.2 mg IM ASDIRECTED PRN PRN Reason: Hemorrhage Misoprostol (Cytotec) 800 mcg RECTAL ASDIRECTED PRN PRN Reason: Hemorrhage Ondansetron HCl (Zofran) 4 mg IVPUSH Q4H PRN PRN Reason: Nausea/Vomiting Last Admin: 02/26/20 15:55 Dose: 4 mg Documented by: Oxytocin (Pitocin) 10 unit IM ONETIME PRN PRN Reason: Bleeding Prenat Multivit/Robotics Software Engineer/Iron/Folic Ac ( Plus Iron) 1 each PO DAILY CARLOS Last Admin: 02/27/20 08:52 Dose: 1 each Documented by: Simethicone (Simethicone) 80 mg PO Q4H PRN PRN Reason: Gas Sodium Chloride (Saline Flush) 10 ml FLUSH ASDIRECTED PRN PRN Reason: Keep Vein Open Witch Radha (Medi-Pads) 1 each TOP Q4HR PRN PRN Reason: Perineal Comfort Measure Discontinued Medications Butorphanol Tartrate (Stadol) 0.5 mg IVPUSH Q3H PRN PRN Reason: Pain Butorphanol Tartrate (Stadol) 1 mg IVPUSH Q3H PRN PRN Reason: Pain Ephedrine Sulfate (Ephedrine Sulfate) Confirm Administered Dose 50 mg .ROUTE .STK-MED ONE Stop: 02/26/20 16:22 Last Admin: 02/26/20 19:35 Dose: Not Given Documented by: Epinephrine HCl (Adrenalin) Confirm Administered Dose 1 mg .ROUTE .STK-MED ONE Stop: 02/26/20 15:56 Last Admin: 02/26/20 19:12 Dose: Not Given Documented by: Epinephrine HCl (Adrenalin) Confirm Administered Dose 1 mg .ROUTE .STK-MED ONE Stop: 02/26/20 21:06 Last Admin: 02/26/20 22:07 Dose: Not Given Documented by: Fentanyl (Sublimaze) 100 mcg IVPUSH Q1H PRN PRN Reason: Pain (moderate 4-6) Fentanyl (Sublimaze) Confirm Administered Dose 100 mcg .ROUTE .STK-MED ONE Stop: 02/26/20 15:56 Last Admin: 02/26/20 19:12 Dose: Not Given Documented by: Fentanyl (Sublimaze) 50 mcg IVPUSH ONETIME STA Stop: 02/26/20 19:58 Last Admin: 02/26/20 19:59 Dose: 50 mcg Documented by: Fentanyl (Sublimaze) Confirm Administered Dose 100 mcg .ROUTE .STK-MED ONE Stop: 02/26/20 21:06 Last Admin: 02/26/20 22:07 Dose: Not Given Documented by: Lactated Ringer's (Ringers, Lactated) 1,000 mls @ 999 mls/hr IV BOLUS ONE Stop: 02/26/20 02:15 Last Admin: 02/26/20 20:03 Dose: Not Given Documented by: Lactated Ringer's (Ringers, Lactated) 1,000 mls @ 125 mls/hr IV ASDIRECTED CARLOS Last Admin: 02/26/20 21:05 Dose: 125 mls/hr Documented by: Lidocaine HCl (Xylocaine-Mpf 1%) 30 ml INJECT ASDIRECTED PRN PRN Reason: Perineal Repair Measles/Mumps/Rubella Vaccine Live (M-M-R Ii Vaccine) 0.5 ml SUBCUT .ONCE ONE Stop: 02/27/20 00:16 Last Admin: 02/27/20 16:50 Dose: 0.5 ml Documented by: Misoprostol (Cytotec) 25 mcg VAG Q4H PRN PRN Reason: cervical ripening Sodium Bicarbonate (Sodium Bicarbonate 4.2%) Confirm Administered Dose 2.5 meq .ROUTE .STK-MED ONE Stop: 02/26/20 15:56 Last Admin: 02/26/20 19:12 Dose: Not Given Documented by: Sodium Bicarbonate (Sodium Bicarbonate 4.2%) Confirm Administered Dose 2.5 meq .ROUTE .STK-MED ONE Stop: 02/26/20 21:07 Last Admin: 02/26/20 22:07 Dose: Not Given Documented by: Sufentanil Citrate (Sufenta) Confirm Administered Dose 50 mcg .ROUTE .STK-MED ONE Stop: 02/26/20 15:56 Last Admin: 02/26/20 19:34 Dose: Not Given Documented by: Sufentanil Citrate (Sufenta) Confirm Administered Dose 50 mcg .ROUTE .STK-MED ONE Stop: 02/26/20 21:06 Last Admin: 02/26/20 22:07 Dose: Not Given Documented by: - Exam General: Reports: Alert, Oriented Lungs: Reports: Clear to Auscultation, Normal Respiratory Effort Cardiovascular: Reports: Regular Rate, Regular Rhythm, No Murmurs GI/Abdominal Exam: Soft, Non-Tender Back Exam: Reports: Normal Inspection Extremities: Normal Inspection, No Pedal Edema Skin: Reports: Warm, Dry, Intact
[2020-02-28] MEDS: Docusate Sodium 100 MG Cap PO SCH (09:45)
[2020-02-28] MEDS: Prenatal Multivitamin with Calcium/Folic Acid/Iron Tab PO SCH (09:45)
[2020-02-28 10:26] VITALS: BP 104/68; PULSE 78
[2020-02-28] MEDS ORDERED: EPINEPHrine 1 MG/1 ML Amp IV ONE (11:59)
[2020-02-28] MEDS ORDERED: Sodium Bicarbonate 4.2% 2.5 MEQ/5 ML SDV ONE (11:59)
[2020-02-28] MEDS ORDERED: fentaNYL 100 MCG/2 ML SDV ITHECAL ONE (11:59)
== END 2020-02-28 12:00 | disposition home or self-care (01) | DRG 560 ==
LOC: DL.OBCHECK 06:58 → DL.OB 06:59 → OBSVTOIN 23:02
PROVIDERS: ADMIT Family Medicine; ATTEND Family Medicine
PROC: 10E0XZZ Delivery of Products of Conception, External Approach (ICD-10-PCS; principal; 2020-02-26)
PROC: 0KQM0ZZ Repair Perineum Muscle, Open Approach (ICD-10-PCS; 2020-02-26)
DX: O48.0 Post-term pregnancy (principal); Z3A.40 40 weeks gestation of pregnancy; Z37.0 Single live birth; Z20.828 Contact with and (suspected) exposure to other viral communicable diseases; O70.1 Second degree perineal laceration during delivery
CPT/HCPCS: 01967; 36415; 51701; 59409; 84112; 85027; 90471; 90707; A9270-GY; J0171; J2405; J2590; J3010; J7120; U0002